=== PATIENT | male | born 1945 | race Caucasian/White ===

== ENCOUNTER 2018-09-17 10:25 | Inpatient (IN) ==
[2018-09-17] MEDS ORDERED: NS 1,000 ML IV ONE ×3 (10:54→10:56)
--- NOTE | 2018-09-17 11:21 | Diag Imaging Result Doc PS360 ---
EXAM: CHEST-1 VIEW 09/17/2018 HISTORY: fever TECHNIQUE: AP portable at 1110 COMMENT: There is no evidence of acute cardiac or pulmonary disease. There are no previous studies. IMPRESSION: No acute disease. Electronically signed by Uriah Garcia 09/17/2018 11:18 AM
[2018-09-17 11:24] LABS: URINE SOURCE CLEAN CATCH
[2018-09-17 11:29] LABS: BILIRUBIN URINE NEGATIVE (NEGATIVE); BLOOD URINE MODERATE (NEGATIVE); COLOR YELLOW; GLUCOSE URINE >1000 mg/dL (NEGATIVE); KETONE URINE TRACE mg/dL (NEGATIVE); LEUKOCYTES URINE TRACE (NEGATIVE); NITRITE URINE NEGATIVE (NEGATIVE); PH URINE 5.5; PROTEIN URINE 100 mg/dL (NEGATIVE); SP GRAVITY URINE 1.012; TURBIDITY URINE HAZY (CLEAR); UROBILINOGEN URINE NORMAL (NORMAL)
[2018-09-17 11:31] LABS: UR EPITHELIAL CELLS <10 /HPF (<10); URINE BACTERIA 4+ /HPF; URINE RBC 20-40 /HPF (<10)
[2018-09-17] MEDS: OFIRMEV 1000 MG/ISOTONIC SOLN 1,000 MG/100 ML BOTTLE IV PRN ×2 (11:33→17:45)
[2018-09-17 11:35] LABS: INR 1.13; PROTIME 15.5 Seconds (11.0-16.0)
[2018-09-17 11:36] LABS: PTT 33.3 Seconds (22.3-41.8)
[2018-09-17 11:39] LABS: BLOOD TYPE ARTERIAL; SAMPLE BLOOD
[2018-09-17 11:55] LABS: ALB/GLOB RATIO 1.6; ALBUMIN 3.8 g/dL (3.5-5.0); CALCIUM 8.4 mg/dL (8.8-10.2); CREATININE 2.9 mg/dL (0.7-1.2); TOTAL BILIRUBIN 0.56 mg/dL (0.20-1.00); TOTAL PROTEIN 6.2 g/dL (6.3-8.3)
[2018-09-17 12:08] LABS: CK-MB 2.75 ng/mL (0.0-5.0)
[2018-09-17 12:09] LABS: CK INDEX 0.4 (0.0-2.5)
[2018-09-17] MEDS ORDERED: ZOSYN 3.375 GM in NS 50 ML IV ONE (12:12)
[2018-09-17 12:16] LABS: BASO# 0.01 X1000 (0.0-0.2); BASO% 0.1 % (0.0-0.8); HEMATOCRIT 30.6 % (42.0-52.0); HEMOGLOBIN 10.3 g/dL (14.0-18.0); IMM GRAN# 0.03 X1000 (0.0-0.04); IMM GRAN% 0.4 % (0.0-0.5); LYMPH# 0.35 X1000 (1.2-3.4); LYMPH% 5.2 % (20.5-51.1); MCH 28.9 PG (27-31); MCHC 33.7 g/dL (33-37); MCV 85.7 FL (81-99); MONO# 0.43 X1000 (0.11-0.59); MONO% 6.4 % (1.7-9.3); MPV 10.8 FL (7.4-10.4); NEUT# 5.86 X1000 (1.4-6.5); NEUT% 87.9 % (42.2-75.2); PLT 111 X1000 (130-400); RBC 3.57 XMIL (4.7-6.1); RDW 16.1 % (11.5-14.5); WBC 6.68 X1000 (4.8-10.8)
[2018-09-17] MEDS ORDERED: HUMULIN R IV ONE (12:29)
[2018-09-17] MEDS ORDERED: ZOFRAN IV PRN (12:34)
--- NOTE | 2018-09-17 12:40 | PROVIDER DOCUMENTATION ---
This chart was entered by Sury Canseco Scribe, acting as scribe for Edi Leach DO. HPI-Fever - General Chief Complaint: SEPSIS ALERT - D Stated Complaint: hyperglycemic Time Seen by Provider: 09/17/18 10:40 Source: patient, family, EMS Allergies/Adverse Reactions: Patient Allergies Allergy/AdvReac Type Severity Reaction Status Date / Time No Known Allergies Allergy Verified 06/16/16 12:41 Home Medications: Home Medication List Medication Instructions Recorded Confirmed Last Taken Type ATORVAstatin [Lipitor] 40 mg PO QHS 06/16/16 06/16/16 06/15/16 History Acarbose 100 mg PO TID 06/16/16 06/16/16 06/15/16 History Aspirin 81 mg PO DAILY 06/16/16 06/16/16 06/15/16 History Atenolol [Tenormin] 50 mg PO DAILY 06/16/16 06/16/16 06/15/16 History Chrom Mauro/Brindal Miller [Garcinia 1 each PO BID 06/16/16 06/17/16 06/15/16 Hi story Cambogia Tablet] Citalopram [Celexa] 20 mg PO DAILY 06/16/16 06/16/16 06/15/16 History Gabapentin 100 mg PO DAILY 06/16/16 06/16/16 06/15/16 History Glipizide [Glipizide ER] 2 tab PO BID 06/16/16 06/16/16 06/15/16 History LISINOpril [Prinivil] 20 mg PO BID 06/16/16 06/16/16 06/15/16 History Loratadine 10 mg PO DAILY 06/16/16 06/16/16 06/15/16 History Meloxicam 15 mg PO DAILY 06/16/16 06/17/16 06/15/16 History Omeprazole 40 mg PO DAILY 06/16/16 06/16/16 06/15/16 History Potassium 99 mg PO DAILY 06/16/16 06/17/16 06/15/16 History Prazosin [Minipress] 4 mg PO QHS 06/16/16 06/16/16 06/15/16 History Theophylline Anhydrous 200 mg PO DAILY 06/16/16 06/16/16 06/15/16 History [Theophylline] Trazodone [Desyrel] 100 mg PO QHS 06/16/16 06/16/16 06/15/16 History - History of Present Illness-Fever Nature of Presenting Problem: 73 yowm presents to the ed via ems withc/o hyperglycemia, nausea, vomiting, fever 102.4, sob, syncope with fall, decreased urination, poor oral intake, decreased appetite and rt shoulder pain. pt sts pt has been in decline since 09/14/18 and has just not been acting himself.pt currently has bladder cancer and is in tx.. pt on exam dry in appearance and ill appearing. 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 denies: back/neck pain, chest pain, cough, diarrhea Similar Symptoms Previously?: No Recently seen or treated by another doctor?: No - Glascow Coma Score Best Eye Response ([place]): (3) open to voice Best Verbal Response ([place]): (5) oriented Best Motor Response ([place]): (6) obeys commands [place] Total: 14 Review of Systems - Adult - REVIEW OF SYSTEMS - ADULT ROS:: ROS per family () Constitutional: reports: see HPI, chills, fever, fatique Eyes: reports: no symptoms reported Ears, Nose, Mouth & Throat: reports: no symptoms reported Cardiovascular: reports: syncope (last night). denies: chest pain, palpitations Respiratory: reports: see HPI, shortness of breath. denies: cough, wheezing Gastrointestinal: reports: nausea, poor appetite, vomiting. denies: abdominal pain, diarrhea Genitourinary: reports: see HPI, urinary retention. denies: dysuria Musculoskeletal: reports: muscle aches. denies: back pain, neck pain Integumentary: reports: no symptoms reported Neurological: reports: see HPI, loss of balance, syncope. denies: dizziness/vertigo, headache/migraines, slurred speech, tremors Psychiatric: reports: no symptoms reported Endocrine: reports: no symptoms reported Hematologic/Lymphatic: reports: no symptoms reported Allergic/Immunologic: reports: no symptoms reported All Other Systems: Reviewed and Negative Past History - Adult - PAST MEDICAL HISTORY-ADULT Review of Records: reports: Old Records Reviewed, Nursing Assessment Review, Medications Reviewed, Social history reviewed & non-contributory. Major Childhood Illnesses: reports: denies history Cardiovascular: reports: HTN, hyperlipidemia Respiratory: reports: asthma, sleep apnea Gastrointestinal: reports: GERD Genitourinary: reports: cancer (bladder), kidney stones Musculoskeletal: reports: denies history Hand Dominance: Right Handed Neurological: reports: denies history Psychiatric: reports: denies history Endocrine/Immune: reports: Diabetes Diabetes Type: Type 2 Other Conditions: reports: denies history - PRIOR SURGERIES/PROCEDURES Surgical/Procedure History: reports: reviewed, not pertinent - IMMUNIZATION STATUS Childhood Immunizations: See Nurse Assessment Flu Vaccine: See Nurse Assessment - FAMILY HISTORY Family History: reviewed, not pertinent - SOCIAL HISTORY Smoking: denies Substance Use: denies Living Situation: family Physical Exam-General - PHYSICAL EXAM-ADULT Initial Vital Signs Reviewed: Yes - CONSTITUTIONAL General Appearance: alert, mild distress, obese, slow to respond. negative: appears well (ill appearing) - EYES Eyes: PERRL/EOMI, pale conjunctivae - HEAD, EARS, NOSE, MOUTH & THROAT HENMT: TMs normal, pharynx normal. negative: moist mucous membranes (dry oral with decreased oral intake) - NECK Neck: full range of motion, normal inspection - RESPIRATORY Respiratory: chest non-tender, lungs clear, normal breath sounds - CARDIOVASCULAR Cardiovascular: normal peripheral pulses, tachycardia (111) - GASTROINTESTINAL (ABDOMEN) Abdominal Exam: normal bowel sounds, non tender, soft - LYMPHATIC Lymphatic: no adenopathy - MUSCULOSKELETAL Back Exam: normal inspection, no CVA tenderness, no vertebral tenderness Extremity: normal inspection, no pedal edema, no calf tenderness, normal capillary refill, pelvis stable Progress - PLAN OF CARE/RESULTS Progress/Plan/Lab Results: Vital Signs - 8 hr 09/17/18 10:34 Temperature 102.4 F H Pulse Rate 106 H Respiratory Rate 20 Blood Pressure 137/78 O2 Sat by Pulse Oximetry 93 L Laboratory Results - last 24 hr 09/17/18 09/17/18 09/17/18 10:50 10:50 10:50 WBC 6.68 RBC 3.57 L Hgb 10.3 L Hct 30.6 L MCV 85.7 MCH 28.9 MCHC 33.7 RDW Std Deviation 16.1 H Plt Count 111 L MPV 10.8 H Immature Gran % (Auto) 0.4 Neut % (Auto) 87.9 H Lymph % (Auto) 5.2 L Bradley % (Auto) 6.4 Eos % (Auto) 0.0 Baso % (Auto) 0.1 Immature Gran # (Auto) 0.03 Neut # (Auto) 5.86 Lymph # (Auto) 0.35 L Bradley # (Auto) 0.43 Eos # (Auto) 0.00 Baso # (Auto) 0.01 PT 15.5 INR 1.13 PTT (Actin FS) 33.3 Sodium 126 L Potassium 5.0 Chloride 91 L Carbon Dioxide 16 L Anion Gap 19 BUN 57 H Creatinine 2.9 H Estimated GFR/1.73 m2 21 BUN/Creatinine Ratio 20 Glucose 422 H* POC Glucose Calculated Osmolality 287 Calcium 8.4 L Total Bilirubin 0.56 AST 18 ALT 29 Alkaline Phosphatase 62 Creatine Kinase 736 H Creatine Kinase Index 0.4 CK-MB (CK-2) 2.75 Troponin T Total Protein 6.2 L Albumin 3.8 Globulin 2.4 Albumin/Globulin Ratio 1.6 Plasma Lactate Urine Source Urine Color Urine Turbidity Urine pH Ur Specific [place] Urine Protein Ur Glucose (Stick) Ur Ketones (Stick) Urine Blood Urine Nitrite Urine Bilirubin Urobilinogen Dipstick Urine Leukocytes Urine WBC (Auto) Urine RBC (Auto) U Epithel Cells (Auto) Urine Bacteria (Auto) 09/17/18 09/17/18 09/17/18 10:50 10:50 11:02 WBC RBC Hgb Hct MCV MCH MCHC RDW Std Deviation Plt Count MPV Immature Gran % (Auto) Neut % (Auto) Lymph % (Auto) Bradley % (Auto) Eos % (Auto) Baso % (Auto) Immature Gran # (Auto) Neut # (Auto) Lymph # (Auto) Bradley # (Auto) Eos # (Auto) Baso # (Auto) PT INR PTT (Actin FS) Sodium Potassium Chloride Carbon Dioxide Anion Gap BUN Creatinine Estimated GFR/1.73 m2 BUN/Creatinine Ratio Glucose POC Glucose 407 H Calculated Osmolality Calcium Total Bilirubin AST ALT Alkaline Phosphatase Creatine Kinase Creatine Kinase Index CK-MB (CK-2) Troponin T < 0.010 Total Protein Albumin Globulin Albumin/Globulin Ratio Plasma Lactate Urine Source CLEAN CATCH Urine Color YELLOW Urine Turbidity HAZY Urine pH 5.5 Ur Specific [place] 1.012 Urine Protein 100 A Ur Glucose (Stick) >1000 A Ur Ketones (Stick) TRACE A Urine Blood MODERATE A Urine Nitrite NEGATIVE Urine Bilirubin NEGATIVE Urobilinogen Dipstick NORMAL Urine Leukocytes TRACE A Urine WBC (Auto) 10-20 A Urine RBC (Auto) 20-40 A U Epithel Cells (Auto) <10 Urine Bacteria (Auto) 4+ 09/17/18 11:05 WBC RBC Hgb Hct MCV MCH MCHC RDW Std Deviation Plt Count MPV Immature Gran % (Auto) Neut % (Auto) Lymph % (Auto) Bradley % (Auto) Eos % (Auto) Baso % (Auto) Immature Gran # (Auto) Neut # (Auto) Lymph # (Auto) Bradley # (Auto) Eos # (Auto) Baso # (Auto) PT INR PTT (Actin FS) Sodium Potassium Chloride Carbon Dioxide Anion Gap BUN Creatinine Estimated GFR/1.73 m2 BUN/Creatinine Ratio Glucose POC Glucose Calculated Osmolality Calcium Total Bilirubin AST ALT Alkaline Phosphatase Creatine Kinase Creatine Kinase Index CK-MB (CK-2) Troponin T Total Protein Albumin Globulin Albumin/Globulin Ratio Plasma Lactate 2.0 Urine Source Urine Color Urine Turbidity Urine pH Ur Specific [place] Urine Protein Ur Glucose (Stick) Ur Ketones (Stick) Urine Blood Urine Nitrite Urine Bilirubin Urobilinogen Dipstick Urine Leukocytes Urine WBC (Auto) Urine RBC (Auto) U Epithel Cells (Auto) Urine Bacteria (Auto) Orders Category Date Time Status Admit - [facility] Routine AdmDCTranf 09/17/18 12:34 Active Activity - Strict Bedrest ORDERED Care 09/17/18 12:34 Active Call Admitting on Arrival AT ADMISSION Care 09/17/18 12:35 Active Cardiac Monitoring DIRECTED Care 09/17/18 10:39 Active Finger Stick Blood Sugar (ED) DIRECTED Care 09/17/18 10:56 Active Fingerstick Blood Sugar [FSBS/Accucheck Result] Q4HR Care 09/17/18 12:36 Active IV Insertion ORDERED Care 09/17/18 10:39 Completed Notify MD of + Sepsis Screen NOW Care 09/17/18 10:39 Active Notify Physician As Ordered Care 09/17/18 10:39 Active Vital Signs Order ROUTINE Care 09/17/18 12:34 Active Diabetic Diet Diet 09/17/18 Diet Enter Time Active CHEST-1 VIEW [RAD] Stat Exams 09/17/18 10:39 Completed ABG [RESP] Routine Lab 09/17/18 11:27 Received BLOOD CULTURE [BLDCUL] Stat Lab 09/17/18 11:07 Received CBC WITH DIFF [HEME] Stat Lab 09/17/18 10:50 Completed CK PROFILE [SP CHEM] Stat Lab 09/17/18 10:50 Completed COMPREHENSIVE METABOLIC PANEL [CHEM] Stat Lab 09/17/18 10:50 Completed LACTATE, PLASMA [CHEM] Lab 09/17/18 13:45 Uncollected LACTATE, PLASMA [CHEM] Lab 09/17/18 16:45 Uncollected LACTATE, PLASMA [CHEM] Q3H Lab 09/17/18 11:05 Completed PROTIME WITH INR [COAG] Stat Lab 09/17/18 10:50 Completed PTT [COAG] Stat Lab 09/17/18 10:50 Completed TROPONIN T Stat Lab 09/17/18 10:50 Completed URINALYSIS W/POSS RFLX CULT [URINALYSIS] Stat Lab 09/17/18 10:50 Completed 0.9% Sodium Chloride Inj [Ns] 1,000 ml Med 09/17/18 10:54 Discontinued IV 999 mls/hr 0.9% Sodium Chloride Inj [Ns] 1,000 ml Med 09/17/18 10:54 Discontinued IV 999 mls/hr 0.9% Sodium Chloride Inj [Ns] 1,000 ml Med 09/17/18 10:56 Discontinued IV 999 mls/hr Acetaminophen [Ofirmev 1000 mg/Isotonic Soln] Med 09/17/18 10:51 Active 1,000 mg in 100 ml IV Q6H PRN Insulin Human Regular [Humulin R] Med 09/17/18 12:29 Discontinued 10 unit IV NOW ONE Morphine Med 09/17/18 12:34 Ordered 2 mg IV Q2H PRN PRN Ondansetron [Zofran] Med 09/17/18 12:34 Ordered 4 mg IV Q4H PRN PRN Piperacillin/Tazobactam [Zosyn] 3.375 gm Med 09/17/18 12:12 Active 0.9% Sodium Chloride Inj [Ns] 50 ml IV NOW Oxygen Device Routine Oth 09/17/18 12:35 Active Oxygen Device Stat Oth 09/17/18 10:39 Completed Transfer/Admit Order [TRANSFER] Routine Transfer 09/17/18 12:38 Ordered Result Diagrams: 09/17/18 10:50 09/17/18 10:50 - REASSESSMENT Reassessment #1 Time Reassessed: 11:25 (pt is sleeping in bed with family at bedside) Status: unchanged Reassessment #2 Time Reassessed: 12:01 (pt is resting) Status: unchanged Reassessment Comment: BGL 422 - XRAY 1 XRAY: Bilateral XRAY Study: Chest Impression: See EMR Report (EXAM: CHEST-1 VIEW 09/17/2018 HISTORY: fever TECHNIQUE: AP portable at 1110 COMMENT: There is no evidence of acute cardiac or pulmonary disease. There are no previous studies. IMPRESSION: No acute disease. Electronically signed by Uriah Garcia 09/17/2018 11:18 AM 09/17/181117 Interpreting Physician: Uriah Garcia MD Dictated Date/Time: 09/17/181117 cc: Obdulio Haney MD; Alexis Cordoba MD) - CONSULTS/PCP/HOSPITALIST Notification #1 *Consult/PCP/Hospitalist*: dr cordoba pcp Time Discussed: 12:33 (spoke with dr avila hoffman) Consult Disposition: Admit Departure - Departure Date of Disposition Decision: 09/17/18 Time of Disposition Decision: 12:40 DIAGNOSIS: Sepsis, Hyperglycemia due to type 2 diabetes mellitus Disposition: ADMITTED INPATIENT 09 Certified Medical Emergency: Emergent Condition: Stable Referrals and Follow-Ups: Alexis Cordoba MD [Primary Care Provider] - - Critical Care Note This patient required my direct & personal management of CC.: Yes Total Time (mins): 38 Critical Care Statement: This patient required my direct personal management to treat or rule out processes, the absence of which, could potentiallly result in sudden, clinically significant life or limb threatening deterioration. Attestation - Physician/ HENRIQUE Attestation Patient care was provided by Advanced Practice Provider:: No The physician spent face to face time with patient:: Yes Advanced Practice Provider documentation review:: Supervising physician onsite and consulted in the evaluation and care of this patient. The physician did have a face to face encounter with the patient. This chart was documented by the indicated scribe, (Sury Canseco Scribe) and accurately reflects the services I performed and decisions made by , Edi Leach DO, as attested by the provider's signature.
[2018-09-17 14:41] LABS: HCO3-(ACT) 14.4 mmoll (20.0-26.0); MODALITY ROOM AIR; PCO2(98.6) 22 mmHg (35-45); PO2(98.6) 75 mmHg (60-100); pH(98.6) 7.42 (7.35-7.45)
[2018-09-17 14:42] LABS: ALLEN TEST YES
--- NOTE | 2018-09-17 14:59 | HISTORY AND PHYSICAL ---
CHIEF COMPLAINT: Falls, weakness, and dysuria. HISTORY: This is one of several [facility] admissions for this 73-year-old white man, patient of Dr. Montaño who presented to the emergency room with history of fall several times over the last couple of days. He complained with tenderness on the left side of his head. There was no swelling or discoloration. Chest x-ray showed no acute disease. Blood sugar was elevated at 422. Sodium was low at 126, potassium 5.0, INR 1.1, hemoglobin 10.3, hematocrit 30.6, white blood count 6700. Troponin T less than 0.01. CPK 736, MB 2.7, plasma lactate 2.0. Urinalysis, 10 to 20 WBCs and 20 to 40 RBCs, also 4+ bacteria. The patient was given some intravenous insulin. Decision was made to place in the hospital on intravenous antibiotics. PAST MEDICAL HISTORY: Significant for bladder cancer. He has chemotherapy infused into his bladder periodically in [place]. He had colonoscopy in June by Dr. Barraza. This was normal. PRESENT MEDICATIONS: Acarbose 100 mg t.i.d., aspirin 81 mg daily, atenolol 50 mg 1 daily, atorvastatin 40 mg at bedtime, vitamins b.i.d., citalopram 20 mg daily, gabapentin 100 mg daily, glipizide 10 mg ER 2 tablets b.i.d., lisinopril 20 mg b.i.d., loratadine 10 mg 1 daily, meloxicam 15 mg 1 daily, omeprazole 40 mg 1 daily, potassium 1 daily, prazosin 5 mg at bedtime and trazodone 100 mg at bedtime. ALLERGIES: None known. REVIEW OF SYSTEMS: Significant for dizziness and weakness, worse over the past couple of days, resulting in some falls at home. There is no history of recent weight loss. SOCIAL HISTORY: No significant alcohol usage. PHYSICAL EXAMINATION: VITAL SIGNS: Temperature 102.4 degrees on presentation to the emergency room. Temperature was 99 degrees when seen by me. Heart rate 90, respirations 16, blood pressure 97/58, O2 saturation 97%. GENERAL: Patient is a well-developed, well-nourished white man with generalized weakness, but in no distress. HEENT: Pupils equal, round, and reactive to light. Pharynx benign with no erythema or exudate. NECK: Supple with no mass or lymphadenopathy. There is no discoloration on the left side of his head where he complains of tenderness related to a fall. HEART: Regular in rate and rhythm with no murmur, rub or gallop. LUNGS: Clear with no rales or rhonchi. ABDOMEN: Soft with no mass, tenderness, or organomegaly. EXTREMITIES: A few contusions but no significant swelling of knees or ankles. RECTAL AND GENITALIA: Deferred. IMPRESSION: 1. Cystitis. 2. History of bladder cancer. 3. Diabetes, uncontrolled. 4. Hyponatremia. PLAN: Admit for further evaluation and treatment, sugar control, and treatment with intravenous antibiotics. cc: Paul Jeffers MD
[2018-09-17] MEDS ORDERED: HUMALOG SUBQ SCH (16:00)
[2018-09-17] MEDS: NS 1,000 ML IV SCH (16:27)
[2018-09-17] MEDS: HUMALOG SUBQ SCH ×2 (16:28→21:49)
[2018-09-17] MEDS: MORPHINE IV PRN (16:40)
[2018-09-17] MEDS: PRECOSE PO SCH (17:20)
[2018-09-17] MEDS: LIPITOR PO SCH (21:49)
[2018-09-17] MEDS: GLUCOTROL XL PO SCH (21:49)
[2018-09-18] MEDS: OFIRMEV 1000 MG/ISOTONIC SOLN 1,000 MG/100 ML BOTTLE IV PRN (01:40)
[2018-09-18] MEDS ORDERED: ROCEPHIN 2 GM in NS 50 ML IV SCH (02:00)
[2018-09-18] MEDS: ROCEPHIN 1 GM in NS 50 ML IV SCH (02:32)
[2018-09-18] MEDS: MORPHINE IV PRN (03:33)
[2018-09-18] MEDS: PRILOSEC PO SCH (06:19)
[2018-09-18] MEDS: HUMALOG SUBQ SCH ×4 (06:30→20:47)
[2018-09-18] MEDS: NS 1,000 ML IV SCH (06:33)
[2018-09-18 06:41] LABS: CALCIUM 8.1 mg/dL (8.8-10.2); CREATININE 2.4 mg/dL (0.7-1.2); POTASSIUM 3.4 mmol/L (3.5-5.1)
[2018-09-18] MEDS: GLUCOTROL XL PO SCH ×3 (07:53→20:45)
[2018-09-18] MEDS: TENORMIN PO SCH ×2 (07:54→13:16)
[2018-09-18] MEDS: NEURONTIN PO SCH ×2 (07:54→13:16)
[2018-09-18] MEDS: ASPIRIN PO SCH ×2 (07:54→13:17)
[2018-09-18] MEDS: PRECOSE PO SCH ×3 (07:54→17:23)
[2018-09-18] MEDS: CELEXA PO SCH ×2 (07:54→13:16)
[2018-09-18] MEDS ORDERED: KLOR-CON PO ONE (08:16)
[2018-09-18] MEDS ORDERED: THEO-24 PO SCH (09:00)
--- NOTE | 2018-09-18 10:05 | Diag Imaging Result Doc PS360 ---
EXAM: US RENAL 2 (RETROPER) COMPLETE HISTORY: frantz/arf TECHNIQUE: Renal ultrasound COMPARISON: None. FINDINGS: The right kidney measures 11.8 x 6.8 x 6.3 cm. Normal renal echotexture and cortical thickness. No renal stone or hydronephrosis. No renal mass. The urinary bladder is moderately distended and appears normal. The left kidney measures 12.1 x 6.3 x 5.7 cm. Normal renal echotexture and cortical thickness. No renal stones or hydronephrosis. No renal mass. IMPRESSION: Normal renal ultrasound. Electronically signed by Josafat Stone 09/18/2018 10:03 AM
[2018-09-18] MEDS: LIPITOR PO SCH (20:45)
--- NOTE | 2018-09-18 21:43 | PROGRESS NOTE ---
DATE: 09/18/2018 SUBJECTIVE: A 73-year-old white gentleman basically admitted to the hospital with syncope, dysuria, falling and weakness. Interval history was reviewed. History and physical reviewed on 09/17/[address] Jeffers. Past medical history reviewed. Past surgical history reviewed. Medicines were reviewed. Allergies not known. REVIEW OF SYSTEMS: Patient was not seen in my office since March 2017. Currently is going to the [facility]. He developed superficial bladder cancer under BCG treatment at [facility]. He is supposed to have a treatment sometime this week. He is grossly tremulous. He is peeing on his own. OBJECTIVE: Vital signs: He has a fever of 100.7, pulse is 93, blood pressure is 131/84, on room air at 98%. HEENT Exam: Within normal limits. Neck: Supple, no lymphadenopathy. Chest: Bilateral air entry. Cardiovascular: Heart sounds are regular. Gastrointestinal: Belly is soft, nontender. Extremities: No peripheral edema. Neurologic: No neurological deficits. INVESTIGATIONS: CBC: White cell count 6.6, hematocrit 30, platelets 111,000. PT/INR is normal. ABG: pH is 7.42, pO2 75. Sodium 135, potassium 3.4, chloride 101, anion gap 17, BUN 46, creatinine 2.4, glucose 115, calcium 8.1. CK was 736. Troponin was negative. Urinalysis positive for blood. Urine cultures and blood cultures are positive for gram-negative rods. Chest x-ray: No acute disease. ASSESSMENT AND PLAN: 1. Urosepsis, currently on ceftriaxone. We will also add Levaquin until the cultures come back. 2. Azotemia. Continue IV fluids 75 mL/h. Follow up on creatinine. 3. Hyponatremia, improving. 4. Type 2 diabetes, chronic kidney disease, now on Glucotrol and go on the sliding scale with insulin coverage and Precose. 5. Hyperlipidemia on Lipitor. 6. Neuropathy pain on Neurontin. 7. Check the ultrasound of the renal. 8. The patient is grossly tremulous. Check the theophylline levels. We will hold the theophylline. Discussed the plan of care with the at bedside and will follow up. cc: MD Paul Mckeon MD
[2018-09-18] MEDS: LEVAQUIN 250 MG/D5W 250 MG/50 ML IVPB IV SCH (22:13)
[2018-09-19] MEDS: ROCEPHIN 1 GM in NS 50 ML IV SCH (02:07)
[2018-09-19] MEDS: NS 1,000 ML IV SCH ×2 (02:07→22:21)
[2018-09-19] MEDS: OFIRMEV 1000 MG/ISOTONIC SOLN 1,000 MG/100 ML BOTTLE IV PRN (04:47)
[2018-09-19] MEDS: PRILOSEC PO SCH (06:01)
[2018-09-19 06:08] LABS: BASO# 0.01 X1000 (0.0-0.2); BASO% 0.3 % (0.0-0.8); EOS# 0.08 X1000 (0.0-0.7); HEMATOCRIT 29.1 % (42.0-52.0); HEMOGLOBIN 9.6 g/dL (14.0-18.0); IMM GRAN# 0.02 X1000 (0.0-0.04); IMM GRAN% 0.5 % (0.0-0.5); LYMPH# 0.59 X1000 (1.2-3.4); LYMPH% 14.8 % (20.5-51.1); MCH 28.7 PG (27-31); MCV 86.9 FL (81-99); MONO# 0.66 X1000 (0.11-0.59); MONO% 16.6 % (1.7-9.3); MPV 10.6 FL (7.4-10.4); NEUT# 2.62 X1000 (1.4-6.5); NEUT% 65.8 % (42.2-75.2); PLT 119 X1000 (130-400); RBC 3.35 XMIL (4.7-6.1); RDW 16.4 % (11.5-14.5); WBC 3.98 X1000 (4.8-10.8)
[2018-09-19 06:29] LABS: CALCIUM 8.6 mg/dL (8.8-10.2); CREATININE 1.7 mg/dL (0.7-1.2); POTASSIUM 3.5 mmol/L (3.5-5.1)
[2018-09-19] MEDS: HUMALOG SUBQ SCH ×4 (06:42→22:22)
[2018-09-19 06:44] LABS: HEMOGLOBIN A1C 10.1 % (4.8-6.0)
[2018-09-19 06:57] LABS: CK INDEX 0.5 (0.0-2.5); CK-MB 1.24 ng/mL (0.0-5.0)
[2018-09-19] MEDS: ASPIRIN PO SCH (08:28)
[2018-09-19] MEDS: CELEXA PO SCH (08:28)
[2018-09-19] MEDS: NEURONTIN PO SCH (08:28)
[2018-09-19] MEDS: GLUCOTROL XL PO SCH ×2 (08:28→22:21)
[2018-09-19] MEDS: TENORMIN PO SCH (08:28)
[2018-09-19] MEDS: PRECOSE PO SCH ×3 (08:30→17:12)
--- NOTE | 2018-09-19 21:14 | PROGRESS NOTE ---
DATE: 09/19/2018 SUBJECTIVE: The patient is a little better. Family is at bedside and not able to get the insulin injection. He has urosepsis due to Klebsiella and a little better than yesterday. OBJECTIVE: Vital Signs: Temperature is 99.4, pulse is 80, blood pressure is stable. HEENT: Within normal limits. Chest: Clear. Heart: Heart sounds are regular. Abdomen: Belly is soft, nontender. No obvious deficits. INVESTIGATIONS: CBC: White cell count 3.9, hematocrit 29, platelets 111,000. SMA-7: Sodium 135, potassium 3.5, BUN 32, creatinine 1.7, glucose 141. A1c 10.1. CK-MB index was negative. ASSESSMENT AND PLAN: 1. Tremor. Discontinue theophylline. 2. Uncontrolled diabetes. Hold the metformin since creatinine is 1.7. Patient's is going to bring the insulin dose. Continue on sliding scale with insulin coverage. 3. Urosepsis due to Klebsiella. Continue IV ceftriaxone, Levaquin, azotemia. Is improving. Continue IV fluids. 4. History of bladder cancer, going for BCG treatment. 5. Hyperlipidemia, on Lipitor. 6. Currently patient was on Lantus 30 units at bedtime. We will restart today and repeat the labs in the morning. Discussed the plan of care with family. 7. Will also start on Pepcid for GI prophylaxis. LEVEL OF DOCUMENTATION: 25 minutes. cc: MD Paul Mckeon MD
[2018-09-19] MEDS ORDERED: SEROQUEL PO ONE (21:17)
[2018-09-19] MEDS ORDERED: MORPHINE IV PRN (21:36)
[2018-09-19] MEDS: LANTUS INSULIN SUBQ SCH (22:21)
[2018-09-19] MEDS: LIPITOR PO SCH (22:21)
[2018-09-19] MEDS: LEVAQUIN 250 MG/D5W 250 MG/50 ML IVPB IV SCH (22:23)
[2018-09-19] MEDS: PEPCID IV SCH (23:22)
[2018-09-20] MEDS: ROCEPHIN 1 GM in NS 50 ML IV SCH (03:14)
[2018-09-20 05:54] LABS: BASO# 0.02 X1000 (0.0-0.2); BASO% 0.5 % (0.0-0.8); EOS% 2.3 % (0.0-10.0); HEMATOCRIT 30.7 % (42.0-52.0); HEMOGLOBIN 10.2 g/dL (14.0-18.0); IMM GRAN# 0.05 X1000 (0.0-0.04); IMM GRAN% 1.2 % (0.0-0.5); LYMPH% 18.4 % (20.5-51.1); MCH 28.7 PG (27-31); MCHC 33.2 g/dL (33-37); MCV 86.5 FL (81-99); MONO# 0.41 X1000 (0.11-0.59); MONO% 9.4 % (1.7-9.3); MPV 10.4 FL (7.4-10.4); NEUT# 2.96 X1000 (1.4-6.5); NEUT% 68.2 % (42.2-75.2); PLT 137 X1000 (130-400); RBC 3.55 XMIL (4.7-6.1); RDW 16.5 % (11.5-14.5); WBC 4.34 X1000 (4.8-10.8)
[2018-09-20 06:16] LABS: CALCIUM 8.5 mg/dL (8.8-10.2); CREATININE 1.3 mg/dL (0.7-1.2); POTASSIUM 3.2 mmol/L (3.5-5.1)
[2018-09-20] MEDS: PRILOSEC PO SCH (06:55)
[2018-09-20] MEDS: HUMALOG SUBQ SCH ×4 (06:55→21:05)
[2018-09-20] MEDS: NEURONTIN PO SCH (09:47)
[2018-09-20] MEDS: ASPIRIN PO SCH (09:47)
[2018-09-20] MEDS: PEPCID IV SCH ×2 (09:47→21:05)
[2018-09-20] MEDS: TENORMIN PO SCH (09:47)
[2018-09-20] MEDS: CELEXA PO SCH (09:47)
[2018-09-20] MEDS: GLUCOTROL XL PO SCH ×2 (10:07→21:04)
[2018-09-20] MEDS: PRECOSE PO SCH ×3 (10:07→16:15)
[2018-09-20] MEDS: LIPITOR PO SCH (21:04)
[2018-09-20] MEDS: LEVAQUIN 250 MG/D5W 250 MG/50 ML IVPB IV SCH (21:05)
[2018-09-20] MEDS: SODIUM CHLORIDE 0.9% INJ SCH (21:05)
[2018-09-20] MEDS: LANTUS INSULIN SUBQ SCH (21:05)
[2018-09-20] MEDS ORDERED: MAGNESIUM SULFATE 2 GM/S.W.I. 2 GM/50 ML IVPB IV ONE (21:51)
[2018-09-20] MEDS ORDERED: KLOR-CON PO ONE (21:51)
[2018-09-21] MEDS: ROCEPHIN 1 GM in NS 50 ML IV SCH (02:34)
[2018-09-21 06:03] LABS: BASO# 0.04 X1000 (0.0-0.2); BASO% 0.6 % (0.0-0.8); HEMATOCRIT 33.2 % (42.0-52.0); HEMOGLOBIN 10.8 g/dL (14.0-18.0); IMM GRAN% 4.5 % (0.0-0.5); LYMPH# 1.28 X1000 (1.2-3.4); LYMPH% 19.2 % (20.5-51.1); MCH 28.3 PG (27-31); MCHC 32.5 g/dL (33-37); MCV 86.9 FL (81-99); MONO# 0.57 X1000 (0.11-0.59); MONO% 8.6 % (1.7-9.3); MPV 10.8 FL (7.4-10.4); NEUT# 4.26 X1000 (1.4-6.5); NEUT% 64.1 % (42.2-75.2); PLT 209 X1000 (130-400); RBC 3.82 XMIL (4.7-6.1); RDW 16.6 % (11.5-14.5); WBC 6.65 X1000 (4.8-10.8)
[2018-09-21 06:22] LABS: CREATININE 1.6 mg/dL (0.7-1.2); POTASSIUM 3.9 mmol/L (3.5-5.1)
--- NOTE | 2018-09-21 06:40 | PROGRESS NOTE ---
DATE: 09/20/2018 SUBJECTIVE: The patient, last night, had delirium, requiring Seroquel. This morning, mental status is improving. The patient was started on Lantus last night. REVIEW OF SYSTEMS: None reported. PHYSICAL EXAMINATION: Temperature is 98 degrees, pulse 76, blood pressure is stable. HEENT Examination: Within normal limits. Neck: Supple. No lymphadenopathy. Chest: Bilateral air entry. Heart sounds are regular. Belly is soft, nontender. Good bowel sounds. No neurologic deficits. INVESTIGATIONS: CBC: White cell count 4.3, hematocrit 30.7, platelets 137,000. Sodium 133, potassium 3.2, BUN 30, creatinine 1.3, glucose 344. ASSESSMENT AND PLAN: 1. Urosepsis, getting better. Continue on ceftriaxone and Levaquin. 2. Delirium. Seroquel as needed. 3. Type 2 diabetes. Continue on acarbose. Metformin is on hold. Started on Lantus and glipizide along with sliding scale with insulin coverage. 4. Continue intravenous fluids. 5. Hypokalemia. Replace the potassium and magnesium. 6. Repeat blood cultures prior to the discharge. The patient's wants to discuss with the [facility] in order to get approval. I have made several [facility] this afternoon about his hospitalization and followup. LEVEL OF DOCUMENTATION: 35 minutes. cc: MD Paul Mckeon MD MTDD
[2018-09-21] MEDS: PRILOSEC PO SCH (07:59)
[2018-09-21] MEDS: HUMALOG SUBQ SCH ×4 (07:59→22:47)
[2018-09-21] MEDS: ASPIRIN PO SCH (08:11)
[2018-09-21] MEDS: PRECOSE PO SCH ×3 (08:11→16:54)
[2018-09-21] MEDS: GLUCOTROL XL PO SCH ×2 (08:12→22:46)
[2018-09-21] MEDS: SODIUM CHLORIDE 0.9% INJ SCH ×2 (08:12→22:46)
[2018-09-21] MEDS: CELEXA PO SCH (08:12)
[2018-09-21] MEDS: PEPCID IV SCH ×2 (08:12→22:46)
[2018-09-21] MEDS: TENORMIN PO SCH (08:12)
[2018-09-21] MEDS: NEURONTIN PO SCH (08:12)
[2018-09-21] MEDS: NS 1,000 ML IV SCH (12:46)
--- NOTE | 2018-09-21 21:21 | PROGRESS NOTE ---
DATE: 09/21/2018 SUBJECTIVE: The patient is better. Discussed the plan of care with the [facility]. The patient is out of bed, eating well. No complaints. Medicines were reviewed. OBJECTIVE: On exam, temperature is 98 degrees, pulse is 79, blood pressure is stable, 98% on room air.HEENT: Exam within normal limits. Neck is supple. Chest is clear. Heart sounds are regular. Belly is soft, nontender. TEDs stockings noted. No obvious deficits. INVESTIGATIONS: CBC: White cell count 6.6, hematocrit 33 platelets 209,000. SMA-7: Sodium 135, potassium 3.9, BUN 34, creatinine 1.6, glucose 242. Blood cultures: Repeat was pending. ASSESSMENT AND PLAN: 1. Urosepsis with Klebsiella. Repeat blood cultures. 2. Sepsis is improving. Normal platelet count and also creatinine is 1.6. 3. Repeat urine cultures and blood cultures. 4. Hyperlipidemia. On Lipitor. 5. Depression. On Celexa. 6. Continue IV ceftriaxone and IV Levaquin. 7. Electrolytes were normal. 8. Continue on Prilosec. 9. Diabetes. Continue on Lantus and sliding scale with insulin coverage and probably needs to increase the Lantus twice a day. 10. Insomnia. Trazodone. 11. Repeat the labs in the morning, and if he is stable,, we will discharge over the weekend. LEVEL OF DOCUMENTATION: 25 minutes. cc: MD Paul Mckeon MD
[2018-09-21] MEDS: LEVAQUIN 250 MG/D5W 250 MG/50 ML IVPB IV SCH (22:46)
[2018-09-21] MEDS: DESYREL PO SCH (22:46)
[2018-09-21] MEDS: LIPITOR PO SCH (22:46)
[2018-09-21] MEDS: LANTUS INSULIN SUBQ SCH (22:47)
[2018-09-22] MEDS: ROCEPHIN 1 GM in NS 50 ML IV SCH (03:05)
[2018-09-22] MEDS: HUMALOG SUBQ SCH ×4 (07:23→22:00)
[2018-09-22] MEDS: PRILOSEC PO SCH (07:23)
[2018-09-22 07:52] LABS: CALCIUM 9.4 mg/dL (8.8-10.2); CREATININE 1.6 mg/dL (0.7-1.2)
[2018-09-22 07:54] LABS: BASO# 0.07 X1000 (0.0-0.2); EOS# 0.29 X1000 (0.0-0.7); HEMATOCRIT 31.4 % (42.0-52.0); HEMOGLOBIN 10.3 g/dL (14.0-18.0); IMM GRAN# 0.55 X1000 (0.0-0.04); IMM GRAN% 7.7 % (0.0-0.5); LYMPH# 1.73 X1000 (1.2-3.4); LYMPH% 24.1 % (20.5-51.1); MCH 28.8 PG (27-31); MCHC 32.8 g/dL (33-37); MCV 87.7 FL (81-99); MONO# 0.71 X1000 (0.11-0.59); MONO% 9.9 % (1.7-9.3); MPV 11.2 FL (7.4-10.4); NEUT# 3.82 X1000 (1.4-6.5); NEUT% 53.3 % (42.2-75.2); PLT 220 X1000 (130-400); RBC 3.58 XMIL (4.7-6.1); RDW 16.5 % (11.5-14.5); WBC 7.17 X1000 (4.8-10.8)
[2018-09-22 08:09] LABS: EOS 4 % (1-10); LYMPHS 25 % (21-51); MONO 10 % (1-9); SEGS 61 % (42-75)
[2018-09-22] MEDS: TENORMIN PO SCH (09:47)
[2018-09-22] MEDS: SODIUM CHLORIDE 0.9% INJ SCH ×2 (09:47→22:13)
[2018-09-22] MEDS: CELEXA PO SCH (09:47)
[2018-09-22] MEDS: NEURONTIN PO SCH (09:47)
[2018-09-22] MEDS: ASPIRIN PO SCH (09:47)
[2018-09-22] MEDS: PEPCID IV SCH ×2 (09:47→22:12)
[2018-09-22] MEDS: GLUCOTROL XL PO SCH ×2 (09:47→22:13)
[2018-09-22] MEDS: LANTUS INSULIN SUBQ SCH ×2 (09:51→22:00)
[2018-09-22] MEDS: NS 1,000 ML IV SCH ×2 (13:37→19:34)
[2018-09-22] MEDS: LEVAQUIN 250 MG/D5W 250 MG/50 ML IVPB IV SCH (22:12)
[2018-09-22] MEDS: DESYREL PO SCH (22:13)
[2018-09-22] MEDS: LIPITOR PO SCH (22:13)
[2018-09-23] MEDS: ROCEPHIN 1 GM in NS 50 ML IV SCH (02:00)
--- NOTE | 2018-09-23 03:18 | PROGRESS NOTE ---
DATE: 09/22/2018 SUBJECTIVE: The patient is doing better. Blood sugars running high. Repeat blood culture, urine cultures are pending. OBJECTIVE: Temperature is 98 degrees. Vitals are stable. HEENT: Within normal limits. Chest: Clear. Heart sounds are regular. Belly is soft, nontender. No obvious neurological deficits. LABORATORY: CBC: White count 7, hematocrit 31, platelets 220,000. BUN 30, creatinine 1.6. Repeat urine and blood cultures are pending. ASSESSMENT AND PLAN: 1. Uncontrolled diabetes. Increasing Lantus 15 in the morning, 30 in the evening. The patient is already on glipizide 20 b.i.d. Discontinue acarbose and metformin. Metformin is on hold due to creatinine elevation. 2. Urosepsis, better. Continue IV antibiotics. 3. Thrombocytopenia. Sepsis is improving. Continue IV fluids. If the cultures come back negative, will discharge in the morning. Reconciled home medications, discussed the plan of care with the family at bedside. LEVEL OF DOCUMENTATION: 25 minutes. cc: MD Paul Mckeon MD MTDVladimir
[2018-09-23] MEDS: NS 1,000 ML IV SCH (05:05)
[2018-09-23] MEDS: PRILOSEC PO SCH ×2 (07:15→09:27)
[2018-09-23] MEDS: HUMALOG SUBQ SCH ×2 (07:16→12:56)
[2018-09-23] MEDS: SODIUM CHLORIDE 0.9% INJ SCH (09:27)
[2018-09-23] MEDS: GLUCOTROL XL PO SCH (09:27)
[2018-09-23] MEDS: ASPIRIN PO SCH (09:27)
[2018-09-23] MEDS: NEURONTIN PO SCH (09:28)
[2018-09-23] MEDS: CELEXA PO SCH (09:28)
[2018-09-23] MEDS: LANTUS INSULIN SUBQ SCH (09:28)
[2018-09-23] MEDS: TENORMIN PO SCH (09:28)
[2018-09-23] MEDS: PEPCID IV SCH (09:30)
[2018-09-23 11:25] VITALS: BP 126/65
--- NOTE | 2018-09-24 10:20 | DISCHARGE SUMMARY ---
ADMISSION DATE: 09/17/2018 DISCHARGE DATE: 09/23/2018 DISCHARGING DIAGNOSIS: Altered mental status due to urosepsis from Klebsiella. SECONDARY DIAGNOSIS: 1. 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 2. Uncontrolled diabetes, A1c 11. 3. Hyperlipidemia. 4. Depression with insomnia. 5. Chronic neuropathy pain. 6. Allergic rhinitis. 7. Acid reflux disease. BRIEF HISTORY: Please see the H and P that was done on 09/17/2018. In brief, he is a 73-year-old white gentleman admitted to the hospital by the Dr. Paul Jeffers with recurrent falls, weakness, dysuria. The patient was diagnosed with urosepsis with low blood pressure, azotemia, thrombocytopenia. The patient was started on IV fluids, IV ceftriaxone. He has been receiving BCG treatment for superficial bladder cancer recently. He is going to the [facility]. Further workup revealed the patient had Klebsiella in the urine as well as in the blood. Dual IV antibiotic therapy was initiated with IV Levaquin and ceftriaxone. Follow-up white cell count came back normal. Thrombocytopenia resolved. Creatinine came back to 1.6. Ultrasound of the abdomen did not show any evidence of hydronephrosis. He is slightly confused due to delirium requiring Seroquel. Rest of the hospital course was uneventful. LABORATORY DATA: CBC: White cell count 7.1, hematocrit 31.4, platelets 220,000. Sodium 139, potassium 4, chloride 100, BUN 30, creatinine 1.6, glucose 206. A1c was 10. Cardiac enzymes were negative. The patient discontinued theophylline before. Renal ultrasound normal. Chest x-ray: No acute disease. Repeat urine cultures and blood cultures were negative. DISCHARGE INSTRUCTIONS: 1. Lisinopril 20 mg daily. 2. Prilosec 20 daily. 3. Gabapentin 100 daily. 4. Tenormin 50 daily. 5. Prazosin 4 mg at bedtime. 6. Loratadine 10 daily. 7. Trazodone 100 at bedtime. 8. Celexa 20 daily. 9. Symbicort 1 puff p.o. b.i.d. 10. Flonase as needed. 11. Simvastatin 10 mg daily. 12. Discontinue chlorthalidone. 13. Discontinue metformin. 14. Lantus insulin 15 in the morning, 30 in the night. 15. Levaquin 250 mg daily for 14 days. 16. Glipizide 20 p.o. b.i.d. 17. Maintain the blood sugar below 200. 18. Follow up on superficial bladder cancer in [place] and he is a . He is going to follow up with PCP in the [place] system as well as in my office. cc: MD Paul Mckeon MD MTDD
== END 2018-09-23 14:45 | disposition home or self-care (01) | DRG 872 ==
LOC: SUPCPDRO → ED 10:25 → 4N 14:32
PROVIDERS: ADMIT Family Medicine; ATTEND Internal Medicine
CPT/HCPCS: 71010; 71045; 76770; 80048; 80053; 80198; 81001; 82550; 82553; 82805; 82948; 83036; 83605; 84484; 85025; 85610; 85730; 87040; 87077; 87088; 87186; 96361; 96365; 96375; 99285; 99291; A9270; J0131; J0696; J1815; J1956; J2270; J2543; J3475; J7030; S0028; XXXXX